=== PATIENT | female | born 1970 | race African-American/Black ===

== ENCOUNTER 2020-03-17 18:13 | Emergency (ER) | payer BC, SELFPAY ==
--- NOTE | 2020-03-17 18:29 | ED_ITS ---
HPI - General Adult General Stated complaint: abdominal pain/nausea/vomitting/diarrhea History of Present Illness HPI narrative: This patient was not fully evaluated. As I was walking to another patient's room, I heard patient at the registration desk moaning in pain. When I saw her at the desk as I rounded the corner, she was doubled over in a wheel chair, clutching her lower abdomen. States she was seen in an ER in [place] last week, diagnosed with a viral infection and UTI and discharged home with rx for bentyl and zofran. The zofran bottle was empty. Symptoms are not improving. Reports her symptoms include vomiting, diarrhea, and abdominal pain. Discussed with patient that this clinic does not have capabilities of providing her with IV fluids, IV medication such as antiemetics or pain medications. She is from out of town and did not know if there were any hospitals close. After this discussion, patient and will proceed to [facility] for further evaluation. Discharge Plan Discharge Patient Disposition: Left Without Being Seen Instructions: Antibiotic Form Follow-up/Referrals: PHYSICIAN NOT ON STAFF,NONSTAFF [Primary Care Provider] -
== END 2020-03-17 18:24 | disposition left against medical advice (07) ==
LOC: EXPBETH 18:25
PROVIDERS: Emergency Provider Nurse Practitioner
DX: Z53.21 Procedure and treatment not carried out due to patient leaving prior to being seen by health care provider (principal)
CPT/HCPCS: 99199